=== PATIENT | male | born 1990 | race Caucasian/White ===

== ENCOUNTER 2017-07-21 09:47 | Emergency (ER) | payer OTHER ==
[~2017-07-21] VITALS: Ht 177.8 cm; Wt 108.0 kg
[2017-07-21 09:48] VITALS: BP 122/78; Ht 177.8 cm; Wt 108.0 kg
== END 2017-07-21 11:55 | disposition home or self-care (01) ==
LOC: ED 09:47
DX: S41.011A Laceration without foreign body of right shoulder, initial encounter (principal); X58.XXXA Exposure to other specified factors, initial encounter; Y93.89 Activity, other specified; Y92.89 Other specified places as the place of occurrence of the external cause; Y99.8 Other external cause status
CPT/HCPCS: 90715; J2001

== ENCOUNTER 2017-07-23 16:45 | Emergency (ER) | payer OTHER ==
[~2017-07-23] VITALS: Ht 175.3 cm; Wt 104.3 kg
[2017-07-23 16:48] VITALS: Ht 175.3 cm; Wt 104.3 kg
[2017-07-23 18:02] VITALS: BP 148/75
== END 2017-07-23 18:02 | disposition other institution (70) ==
LOC: ED 16:45
DX: Z04.1 Encounter for examination and observation following transport accident (principal); V43.92XA Unspecified car occupant injured in collision with other type car in traffic accident, initial encounter; Y93.89 Activity, other specified; Y92.89 Other specified places as the place of occurrence of the external cause; Y99.8 Other external cause status

== ENCOUNTER 2017-08-02 15:53 | Emergency (ER) | payer OTHER ==
[~2017-08-02] VITALS: Ht 177.8 cm; Wt 116.1 kg
[2017-08-02 16:15] VITALS: BP 125/70; Ht 177.8 cm; Wt 116.1 kg
== END 2017-08-02 18:11 | disposition home or self-care (01) ==
LOC: ED 15:53
DX: S41.111D Laceration without foreign body of right upper arm, subsequent encounter (principal); X58.XXXD Exposure to other specified factors, subsequent encounter

== ENCOUNTER 2020-01-27 00:47 | Emergency (ER) | payer OTHER ==
[~2020-01-27] VITALS: Ht 175.3 cm; Wt 104.3 kg
[2020-01-27 00:54] VITALS: Ht 175.3 cm; Wt 104.3 kg
[2020-01-27 02:06] VITALS: BP 137/86
== END 2020-01-27 02:07 | disposition other institution (70) ==
LOC: ED 00:47
DX: M25.521 Pain in right elbow (principal); M25.522 Pain in left elbow; F17.210 Nicotine dependence, cigarettes, uncomplicated; W18.30XA Fall on same level, unspecified, initial encounter; Y93.89 Activity, other specified; Y92.89 Other specified places as the place of occurrence of the external cause; Y99.8 Other external cause status
CPT/HCPCS: 90715; 99406

== ENCOUNTER 2020-01-27 00:47 | Emergency (ER) | payer OTHER | END 2020-01-27 02:06 | disposition other institution (70) | LOC: ED 00:47 | DX: Z02.89 Encounter for other administrative examinations (principal) ==